=== PATIENT | female | born 1985 | race Caucasian/White ===

== ENCOUNTER 2018-12-20 07:06 | Inpatient (IN) | payer BC ==
[2018-12-20] MEDS ORDERED: Bupivacaine/Epinephrine 0.25% 30 ML VIAL ONE (09:30)
[2018-12-20] MEDS ORDERED: Butorphanol Tartrate 1 MG/ML VIAL SLOW IVP PRN (19:37)
[2018-12-20] MEDS ORDERED: NS w/ Oxytocin 10 units 500 ML IV SCH (19:37)
[2018-12-20] MEDS ORDERED: NS / Oxytocin 40 units/1000ml 1,000 ML IV PRN (19:37)
[2018-12-20] MEDS ORDERED: Promethazine HCl 25 MG/ML VIAL IM PRN (19:37)
[2018-12-20] MEDS ORDERED: Acetaminophen 500 MG TAB PO PRN (19:37)
[2018-12-20] MEDS ORDERED: Ibuprofen 800 MG TAB PO PRN (19:37)
[2018-12-20] MEDS ORDERED: Ondansetron PF 4 MG/2 ML Vial IVP PRN (19:37)
[2018-12-20] MEDS ORDERED: hydrALAZINE 20 MG/ML VIAL SLOW IVP PRN (19:37)
[2018-12-20] MEDS ORDERED: Lidocaine 1% (PF) 30 ML VIAL SC PRN (19:37)
[2018-12-20 20:04] VITALS: BMI 29.2
[2018-12-20] MEDS: Lactated Ringer's 1,000 ML IV SCH ×2 (20:12→23:54)
[2018-12-20 20:30] LABS: Hemoglobin 11.8 g/dL (12.0-16.0); Mean Corpuscular HGB CONC 35.6 g/dL (32.0-36.0); Mean Corpuscular Hemoglobin 32.6 pg (27.0-31.0); Mean Corpuscular Volume 91.5 fL (78.0-98.0); Mean Platelet Volume 7.7 fL (7.4-10.4); Platelet Count 217 thou/uL (130-400); RBC Distribution Width 11.4 % (11.5-14.5); Red Blood Cell (RBC) Count 3.61 mill/uL (4.20-5.40); White Blood Cell (WBC) Count 10.2 thou/uL (4.8-10.8)
[2018-12-20] MEDS ORDERED: Penicillin G Potassium 5 MILL.UNITS in Sodium Chloride 0.9% 100 ML IVPB SCH (21:00)
[2018-12-20 21:07] LABS: Syphilis Antibody Nonreactive (Nonreactive); Syphilis Antibody Index 0.04 S/CO (<1.00 Non-Reactive)
[2018-12-20] MEDS: Misoprostol 100 MCG TAB VAG SCH (21:13)
[2018-12-20 22:46] LABS: HBSAg Index 0.17 S/CO (0-0.99); Hep B Surf Ag Non-Reactive S/CO (NonReactive)
[2018-12-21] MEDS: Misoprostol 100 MCG TAB VAG SCH ×3 (00:29→08:32)
[2018-12-21] MEDS: Pen G 2.5 MILL.UNITS/50 ML BAG IVPB SCH ×2 (01:19→05:25)
[2018-12-21] MEDS ORDERED: Fentanyl 4 mcg/Bup 0.1% Cadd 100 ML ONE (03:36)
[2018-12-21] MEDS ORDERED: Lidocaine 1.5%/Epinephrine 1:200,000 5 ML AMPUL IJ ONE (03:37)
[2018-12-21] MEDS ORDERED: ePHEDrine/0.9% NaCl/PF SYRINGE 50 mg/10 ml SLOW IVP PRN (04:15)
[2018-12-21] MEDS ORDERED: Naloxone HCl 0.4 mg/ml Vial IVP PRN ×2 (04:15)
[2018-12-21] MEDS ORDERED: Acetaminophen 325 MG TAB PO PRN (04:15)
[2018-12-21] MEDS ORDERED: diphenhydrAMINE 50 MG/ML VIAL IVP PRN (04:15)
[2018-12-21] MEDS ORDERED: Ondansetron PF 4 MG/2 ML Vial IVP PRN (04:15)
[2018-12-21] MEDS ORDERED: Communication Order-Pharmacy FS SCH (04:15)
[2018-12-21] MEDS ORDERED: Lactated Ringer's 500 ML IV PRN (04:15)
[2018-12-21] MEDS ORDERED: Promethazine HCl 25 MG/ML VIAL IM PRN (04:15)
[2018-12-21] MEDS ORDERED: Fentanyl 4 mcg/Bupivacaine 0.1% Cassette 100 ML EPIDURAL SCH (04:15)
[2018-12-21] MEDS: Lactated Ringer's 1,000 ML IV SCH (05:00)
[2018-12-21] MEDS ORDERED: Lidocaine 1% (PF) 30 ML VIAL ONE (06:01)
[2018-12-21] MEDS ORDERED: traMADol HCl 50 MG TAB PO PRN (06:44)
[2018-12-21] MEDS ORDERED: Bisacodyl 10 MG SUPP PR PRN (06:44)
[2018-12-21] MEDS ORDERED: Benzocaine-Menthol 82.5 ML CAN TOP PRN (06:44)
[2018-12-21] MEDS ORDERED: Lanolin Ointment 7 GM TUBE TOP PRN (06:44)
[2018-12-21] MEDS ORDERED: Adacel (T-DAP) 0.5 ML SYRINGE IM ONE (06:44)
[2018-12-21] MEDS ORDERED: Misoprostol 200 MCG TAB VAG PRN (06:44)
[2018-12-21] MEDS ORDERED: hydrALAZINE 20 MG/ML VIAL SLOW IVP PRN (06:44)
[2018-12-21] MEDS ORDERED: Milk Of Magnesia 30 ML UDCUP PO PRN (06:44)
[2018-12-21] MEDS ORDERED: NS / Oxytocin 40 units/1000ml 1,000 ML IV SCH (06:45)
--- NOTE | 2018-12-21 06:47 | PDOC.OPDEL ---
OB Operative/Delivery Note Delivery Dr/Surgeon: Angel Luis Pre-Delivery Diagnosis: elective induction Procedure/Post Delivery Dx: spontaneous vaginal delivery Weeks gestation: 39 Anesthesia: epidural - Findings A Sex: male - 1 min: 8 - 5 min: 9 - Additional Findings/Plan Placenta delivered: spontaneous Repaired Obstetrical Laceration: 2nd degree (and periurethral=repaired with 2-0 chromic)
--- NOTE | 2018-12-21 07:29 | PDOC.LDHP ---
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 Currently on lovenox 30 mg/d prophylaxis. GBS +) Abnormal US findings: No Past Medical History: DVT/PE Current medications: pre-fabrizio vitamins (lovenox 30 mg/d) Previous surgical history: other Allergies/Adverse Reactions: Allergies Allergy/AdvReac Type Severity Reaction Status Date / Time No Known Allergies Allergy Verified 12/20/18 19:56 Social history: none - Vaginal Exam cm dilated: 1 Effacement: 50% Station: -1 - OB Labs Blood type: A RH: positive Antibody Screen: negative HIV: negative RPR: negative HEPSAg: negative 1 hour GCT: negative GBS: positive Urine drug screen: negative Rubella: immune - Assessment L&D Assessment: elective induction at term - Plan Plan: admit to L&D, cervical ripening, labor augmentation if indicated ( Currently off lovenox prophylaxis for 24 hours. SCD in labor. Restart lovenox prophylaxis post delivery for 6 weeks post .)
[2018-12-21] MEDS: Ferrous Sulfate 325 MG TAB PO SCH ×2 (08:32→14:44)
[2018-12-21] MEDS: Docusate Calcium (SURFAK) 240 MG CAP PO SCH ×2 (09:39→21:13)
[2018-12-21] MEDS: Prenatal Vitamin 1 TAB PO SCH (09:39)
[2018-12-21] MEDS: Ibuprofen 800 MG TAB PO SCH ×2 (13:41→21:13)
[2018-12-21] MEDS: Enoxaparin Sodium 30 MG/0.3 ML SYRINGE SC SCH (13:41)
[2018-12-22] MEDS: Enoxaparin Sodium 30 MG/0.3 ML SYRINGE SC SCH ×2 (00:22→09:31)
[2018-12-22] MEDS: Ibuprofen 800 MG TAB PO SCH ×2 (05:19→13:59)
[2018-12-22] MEDS: Ferrous Sulfate 325 MG TAB PO SCH ×2 (08:10→16:02)
[2018-12-22 08:37] VITALS: BP 118/72; TEMP 97.4
--- NOTE | 2018-12-22 09:06 | PDOC.PP ---
Post Progress Note Post Day #: 1 PO intake tolerated: yes Flatus: yes Ambulation: yes Vital Signs (12 hours) Temp Pulse Resp BP Pulse Ox 12/22/18 07:23 97.4 F L 80 16 118/72 96 12/22/18 05:15 97.7 F 88 20 130/74 12/22/18 00:00 97.8 F 87 18 110/74 Weight Weight 170 lb Result Diagrams: 12/20/18 20:15 Additional Labs: Post Labs Blood Type A POSITIVE 12/20/18 22:07 Hep Bs Antigen Non-Reactive S/CO (NonReactive) 12/20/18 20:16 - Assessment/Plan Doing well ppd #1. D/c home today. to continue prophylactic lovenox for 6 weeks.. post check up in 6 weeks.
[2018-12-22] MEDS: Prenatal Vitamin 1 TAB PO SCH (09:30)
[2018-12-22] MEDS: Docusate Calcium (SURFAK) 240 MG CAP PO SCH (09:31)
== END 2018-12-22 20:05 | disposition home or self-care (01) | DRG 807 ==
LOC: L&D 19:21 → 3SW 12-21 09:36 → EDSTATUS 01-08 07:05
PROVIDERS: ADMIT Obstetrics & Gynecology; ATTEND Obstetrics & Gynecology
PROC: 10E0XZZ Delivery of Products of Conception, External Approach (ICD-10-PCS; principal; 2018-12-21)
PROC: 0KQM0ZZ Repair Perineum Muscle, Open Approach (ICD-10-PCS; 2018-12-21)
PROC: 3E0P7VZ Introduction of Hormone into Female Reproductive, Via Natural or Artificial Opening (ICD-10-PCS; 2018-12-21)
PROC: 10907ZC Drainage of Amniotic Fluid, Therapeutic from Products of Conception, Via Natural or Artificial Opening (ICD-10-PCS; 2018-12-21)
DX: O99.824 Streptococcus B carrier state complicating childbirth (principal); Z37.0 Single live birth; O70.1 Second degree perineal laceration during delivery; Z3A.39 39 weeks gestation of pregnancy; Z79.01 Long term (current) use of anticoagulants; Z86.718 Personal history of other venous thrombosis and embolism
CPT/HCPCS: 36415; 85027; 86780; 86850; 86900; 86901; 87340; J1650; J2001; J2405; J2540; J3490

== ENCOUNTER 2019-01-02 17:44 | Emergency (ER) | payer BC ==
--- NOTE | 2019-01-02 18:53 | ULT ---
EXAM: LEFT LOWER EXTREMITY VENOUS ULTRASOUND WITH DOPPLER: 01/02/19 HISTORY: Left calf pain since Tuesday. COMPARISON: None. TECHNIQUE: Rice scale, color flow, Doppler imaging with spectral waveform analysis performed of the left lower e xtremity venous system. FINDINGS: There is compressibility, presence of flow and augmentation in the common femoral vein, femoral vein, and popliteal vein. There is flow in the great saphenous vein, profunda femoral vein and posterior t ibial vein. IMPRESSION: No evidence of thrombus in the left lower extremity deep venous system. POS: NAVEED
[2019-01-02 19:01] LABS: #Basophils 0.1 thou/uL (0.0-0.2); #Eosinphils 0.5 thou/uL (0.0-0.7); #Lymphocytes 1.9 thou/uL (1.20-3.40); #Monocytes 0.7 thou/uL (0.11-0.59); #Neutrophils 7.8 thou/uL (1.40-6.50); %Basophils 0.8 % (0.0-1.0); %Eosinophils 4.3 % (0.0-10.0); %Lymphocytes 17.2 % (21.0-51.0); %Monocytes 6.5 % (0.0-10.0); %Neutrophils 71.2 % (42.0-75.0); Mean Corpuscular HGB CONC 34.5 g/dL (32.0-36.0); Mean Corpuscular Hemoglobin 32.2 pg (27.0-31.0); Mean Corpuscular Volume 93.3 fL (78.0-98.0); Mean Platelet Volume 6.8 fL (7.4-10.4); Platelet Count 395 thou/uL (130-400); RBC Distribution Width 11.2 % (11.5-14.5); Red Blood Cell (RBC) Count 4.02 mill/uL (4.20-5.40); White Blood Cell (WBC) Count 10.9 thou/uL (4.8-10.8)
[2019-01-02 19:22] LABS: ALT (SGPT) 18 U/L (8-55); AST (SGOT) 23 U/L (5-34); Albumin 4.1 g/dL (3.5-5.0); Alkaline Phosphatase 96 U/L (40-110); Anion Gap 14 mmol/L (10-20); BUN (Urea Nitrogen) 13 mg/dL (7.0-18.7); Bilirubin, Total 0.3 mg/dL (0.2-1.2); Calc. Creatinine Clearance 0 mL/min (70-130); Calcium 9.5 mg/dL (7.8-10.44); Carbon Dioxide 22 mmol/L (22-29); Chloride 106 mmol/L (98-107); Estimated GFR-MDRD Greater than 90; Globulin 3.4 g/dL (2.4-3.5); Glucose 84 mg/dL (70-105); Protein, Total 7.5 g/dL (6.0-8.3); Sodium 138 mmol/L (136-145)
== END 2019-01-02 20:22 | disposition home or self-care (01) ==
LOC: ERS 17:44
DX: M79.662 Pain in left lower leg (principal); Z86.718 Personal history of other venous thrombosis and embolism; Z86.711 Personal history of pulmonary embolism
CPT/HCPCS: 36415; 80053; 85025; 85379

== ENCOUNTER 2022-02-21 11:45 | Emergency (ER) | payer BC ==
[~2022-02-21 11:45] MED LIST: Iopamidol-370 76% 500 ML 1 ML ONE
[2022-02-21 12:04] LABS: #Basophils 0.1 thou/uL (0.0-0.2); #Eosinphils 0.2 thou/uL (0.0-0.7); #Lymphocytes 2.4 thou/uL (1.20-3.40); #Monocytes 0.5 thou/uL (0.11-0.59); %Basophils 0.7 % (0.0-1.0); %Lymphocytes 25.7 % (21.0-51.0); %Monocytes 5.8 % (0.0-10.0); %Neutrophils 65.8 % (42.0-75.0); Mean Corpuscular HGB CONC 32.1 g/dL (32.0-36.0); Mean Corpuscular Volume 96.4 fl (78.0-98.0); Mean Platelet Volume 6.8 fL (7.4-10.4); Platelet Count 328 10x3/uL (130-400); RBC Distribution Width 11.3 % (11.5-14.5); Red Blood Cell (RBC) Count 4.51 mill/uL (4.20-5.40); White Blood Cell (WBC) Count 9.2 10x3/uL (4.8-10.8)
[2022-02-21 12:17] LABS: PTT 30.4 sec (22.9-36.1)
[2022-02-21 12:29] LABS: ALT (SGPT) 10 U/L (8-55); AST (SGOT) 13 U/L (5-34); Albumin 5.1 g/dL (3.5-5.0); Alkaline Phosphatase 45 U/L (40-110); Anion Gap 14 mmol/L (10-20); BUN (Urea Nitrogen) 10 mg/dL (7.0-18.7); Bilirubin, Total 0.6 mg/dL (0.2-1.2); CK (CPK) 50 U/L (29-168); Calc. Creatinine Clearance 0 mL/min (70-130); Calcium 10.1 mg/dL (7.8-10.44); Carbon Dioxide 25 mmol/L (22-29); Chloride 105 mmol/L (98-107); Estimated GFR 105; Glucose 96 mg/dL (70-105); Potassium 3.8 mmol/L (3.5-5.1); Protein, Total 8.1 g/dL (6.0-8.3); Sodium 140 mmol/L (136-145)
[2022-02-21 13:26] LABS: Bilirubin Negative (Negative); Blood, Urine Negative (Negative); Clarity Clear (Clear); Glucose, Urine (Dipstick) Normal (Negative); Ketone, Urine Negative (Negative); Leukocyte Negative Leu/uL (Negative); Nitrite Negative (Negative); Protein, Urine (Dipstick) Negative (Neg-Trace); Specific Gravity, Urine 1.036 (1.002-1.036); Urobilinogen Normal mg/dL (Less than 2)
== END 2022-02-21 14:04 | disposition home or self-care (01) ==
LOC: ERS 11:45
DX: R47.89 Other speech disturbances (principal); H53.8 Other visual disturbances; G43.909 Migraine, unspecified, not intractable, without status migrainosus
CPT/HCPCS: 36416; 70450; 70496; 70498; 80053; 81003; 82550; 84484; 85025; 85610; 85730; 93005; Q9967